=== PATIENT | female | born 1945 | race Caucasian/White ===

== ENCOUNTER → 2019-11-16 | Outpatient (CLI) | payer MEDICARE ==
--- NOTE | 2019-11-16 11:49 | CT ---
EXAMINATION TYPE: CT abdomen pelvis wo con DATE OF EXAM: 11/16/2019 COMPARISON: None HISTORY: History of renal stone CT DLP: 710 mGycm Automated exposure control for dose reduction was used. TECHNIQUE: Helical acquisition of images from the lung bases through the pelvis. FINDINGS: Lack of intravenous contrast could compromise sensitivity of the exam. LUNG BASES: No significant abnormality is appreciated. AORTA: No significant abnormality is appreciated. LIVER/GB: No significant abnormality is appreciated. PANCREAS: No significant abnormality is seen. SPLEEN: No significant abnormality is seen. ADRENALS: No significant abnormality is seen. KIDNEYS: Probable small parapelvic cysts noted in the right kidney anteriorly measuring 17 mm. No hyd ronephrosis or ureteral calcification bilaterally.. REPRODUCTIVE ORGANS: Extensive phleboliths are present, possible calcified fibroid anteriorly within the uterus, some small probable small cysts associated with the right ovary. URINARY BLADDER: No significant abnormality is seen. BOWEL: Colonic interposition noted anterior to the liver. Gastric wall thickening may be due to lack of distention. Small anterior abdominal wall hernia in the supraumbilical location contains fat00. FREE AIR: No Free Air is visible. ASCITES: None visible. PELVIC ADENOPATHY: None visualized. RETROPERITONEAL ADENOPATHY: No Retroperitoneal Adenopathy visible. OSSEOUS STRUCTURES: Degenerative disc changes and facet arthropathy changes are present especially i n the lumbar spine, anterolisthesis grade 1 L4-5, L3-4, loss of disc height with associated vacuum ph enomenon. There is multilevel spondylosis. Distortion of the anterior ilium on the right shows a duarte gn appearance, correlate for possible posttraumatic change. Sacralization of L5 is noted.. IMPRESSION: FINDINGS IN THE SPINE DESCRIBED. NO EVIDENT RENAL CALCULUS. ADDITIONAL FINDINGS ABOVE.
== END | disposition home or self-care (01) ==
LOC: RADCTMAIN 11:07
PROVIDERS: ATTEND Family Medicine
DX: Z87.442 Personal history of urinary calculi (principal)
CPT/HCPCS: 74176

== ENCOUNTER → 2021-01-23 | Outpatient (CLI) | payer MEDICARE ==
[~2021-01-23] MED LIST: DOBUTamine DRIP for NUC MED 500 MG in DEXTROSE/WATER 1 250ML.BAG IV PRN
--- NOTE | 2021-01-23 17:09 | ECHOF ---
Referral Reason:I10 Hypertension MEASUREMENTS -------- HEIGHT: 0.0 cm WEIGHT: 0.0 kg BP: RVIDd: 3.2 cm (< 3.3) IVSd: 1.2 cm (0.6 - 1.1) LVIDd: 4.2 cm (3.9 - 5.3) LVPWd: 1.4 cm (0.6 - 1.1) IVSs: 1.8 cm LVIDs: 2.7 cm LVPWs: 1.8 cm Ao Diam: 4.2 cm (2.0 - 3.7) AV Cusp: 2.0 cm (1.5 - 2.6) MV EXCURSION: 12.973 mm (> 18.000) MV EF SLOPE: 79 mm/s (70 - 150) EPSS: 1.0 cm MV E Rios: 0.45 m/s MV DecT: 344 ms MV A Rios: 0.78 m/s MV E/A Ratio: 0.58 RAP: 5.00 mmHg RVSP: 23.84 mmHg FINDINGS -------- Sinus rhythm. This was a technically adequate study. The left ventricular size is normal. There is mild concentric left ventricular hypertrophy. Overa ll left ventricular systolic function is normal with, an EF between 55 - 60 %. The diastolic fillin g pattern is normal for the age of the patient 10.04. The right ventricle is normal in size. LA is severely dilated >40 ml/m2 The right atrial size is normal. Interatrial and interventricular septum intact. There is no evidence of aortic regurgitation. There is no evidence of aortic stenosis. AOV is pos sible Bicuspid. Fnvk-ca-nwkzrapx mitral regurgitation is present. Mild tricuspid regurgitation present. There is no evidence of pulmonary hypertension. The right v entricular systolic pressure, as measured by Doppler, is 23.84mmHg. There is no pulmonic regurgitation present. The aortic root and ascending aorta are dilated measuring up to (4.2 - 4.5) cm. Normal inferior vena cava with normal inspiratory collapse consistent with estimated right atrial pre ssure of 5 mmHg. There is no pericardial effusion. CONCLUSIONS -------- 1. The left ventricular size is normal. 2. There is mild concentric left ventricular hypertrophy. 3. Overall left ventricular systolic function is normal with, an EF between 55 - 60 %. 4. The diastolic filling pattern is normal for the age of the patient 10.04 5. LA is severely dilated >40 ml/m2 6. AOV is possible Bicuspid. 7. Vlhs-jy-yzmtiafe mitral regurgitation is present. 8. Mild tricuspid regurgitation present. 9. The aortic root and ascending aorta are dilated measuring up to (4.2 - 4.5) cm. MANAGER BAR: Veronica Gottlieb RDCS
== END | disposition home or self-care (01) ==
LOC: RADNMMAIN 09:47
PROVIDERS: ATTEND Family Medicine
DX: I08.1 Rheumatic disorders of both mitral and tricuspid valves (principal); I10 Essential (primary) hypertension; I77.810 Thoracic aortic ectasia
CPT/HCPCS: 93306

== ENCOUNTER 2021-02-25 07:42 | Day surgery (SDC) | payer MEDICARE ==
[2021-02-21 13:34] VITALS: BMI 28.8
[~2021-02-25 07:42] MED LIST changes: +ALPRAZolam 0.25 MG TAB PO PRN; +ALPRAZolam 0.5 MG TAB PO PRN; +ASPIRIN 325 MG TAB PO STA; +ATORVASTATIN 80 MG TAB PO STA; -DOBUTamine DRIP for NUC MED 500 MG in DEXTROSE/WATER 1 250ML.BAG IV PRN; +NITROGLYCERIN SL TABS 0.4 MG TAB SUBLINGUAL PRN; +SODIUM CHLORIDE 0.9% 1,000 ML in EMPTY BAG 1 BAG IV SCH
[2021-02-25 08:37] VITALS: TEMP 98.2
[2021-02-25 08:46] LABS: Basophils % (A) 1 %; Eosinophils # (A) 0.2 k/uL (0-0.7); Eosinophils % (A) 3 %; HCT 37.7 % (34.0-46.0); HGB 12.2 gm/dL (11.4-16.0); Lymphocytes # (A) 2.6 k/uL (1.0-4.8); Lymphocytes % (A) 34 %; MCH 28.7 pg (25.0-35.0); MCHC 32.3 g/dL (31.0-37.0); MCV 88.7 fL (80.0-100.0); Mean Platelet Volume 8.2; Monocytes # (A) 0.5 k/uL (0-1.0); Monocytes % (A) 6 %; Neutrophils % (A) 53 %; Platelet Count 317 k/uL (150-450); RBC 4.25 m/uL (3.80-5.40); RDW 13.6 % (11.5-15.5); WBC 7.6 k/uL (3.8-10.6)
[2021-02-25 09:10] LABS: African American GFR (CKD) >90 (>60 ml/min/1.73 sqM); Anion Gap 9 mmol/L; Blood Urea Nitrogen 25 mg/dL (7-17); Calcium 9.4 mg/dL (8.4-10.2); Carbon Dioxide 26 mmol/L (22-30); Chloride 100 mmol/L (98-107); Glucose 94 mg/dL (74-99); Non-African American GFR(CKD) 87 (>60 ml/min/1.73 sqM); Sodium 135 mmol/L (137-145)
[2021-02-25 09:29] LABS: Potassium 4.9 mmol/L (3.5-5.1)
[2021-02-25] MEDS ORDERED: LIDOCAINE 1% INJ 10MG/ML (20 ML MDV) ONE (09:32)
[2021-02-25] MEDS ORDERED: VERAPAMIL 2.5 MG/ML 2 ML AMP ONE (09:33)
[2021-02-25] MEDS ORDERED: HEPARIN SODIUM 1,000 UN/ML (10ML VL) ONE (10:38)
[2021-02-25] MEDS ORDERED: LIDOCAINE 1% INJ 10MG/ML (20 ML MDV) SQ ONE (10:53)
[2021-02-25] MEDS ORDERED: VERAPAMIL SYRINGE (5 MG/10 ML) INTRAARTER ONE (10:54)
[2021-02-25] MEDS ORDERED: MIDAZOLAM 2 MG/2 ML VIAL IV ONE (10:58)
[2021-02-25] MEDS ORDERED: HEPARIN SODIUM 1,000 UN/ML (10ML VL) IV ONE (10:58)
[2021-02-25] MEDS ORDERED: IOPAMIDOL-370 125ML BTL INJ ONE (11:03)
[2021-02-25] MEDS ORDERED: RX INFO: IV CONTRAST WAS GIVEN 1 EACH MISC MISCELLANE PRN (11:08)
[2021-02-25] MEDS ORDERED: SODIUM CHLORIDE 0.9% 1,000 ML IV SCH (11:15)
--- NOTE | 2021-02-25 14:28 | CC ---
CARDIAC CATHETERIZATION REPORT DATE OF SERVICE: 02/25/2021 PERFORMING PHYSICIAN: Rafael Andrea M.D. PROCEDURE PERFORMED: Selective right and left coronary angiogram. INDICATION: This is a very pleasant 75-year-old female patient who was experiencing symptoms of chest discomfort. She underwent myocardial perfusion imaging stress test and that came in to be abnormal, and because of that a heart catheterization was advised. The myocardial perfusion imaging stress test revealed lateral ischemia. APPROACH: Right radial artery. COMPLICATIONS: None. LEVEL OF SEDATION: Moderate, with sedation length of 11 minutes. PROCEDURE DESCRIPTION: After obtaining informed consent, the patient was brought to the cardiac laborer bituminous paving. The right radial artery was cannulated using micropuncture technique. The micropuncture wire passed easily. Then I placed a 6-Arabic sheath in the right radial artery. Subsequently I gave the patient 2 mg of verapamil IA and 5000 units of heparin IV. Selective right and left coronary angiogram was performed with JR4 and JL 3.5 catheters. Left heart catheterization was not performed. The procedure was completed without any complication. SELECTIVE CORONARY ANGIOGRAM: 1. The RCA is a large-caliber vessel. It is a dominant vessel and appeared to be angiographically normal. Distally it bifurcates into PDA and PLV branches. Both appeared to be angiographically normal. 2. The left main is angiographically normal. It bifurcates into left circumflex and left anterior descending artery. 3. The left circumflex is a large-caliber vessel. It is a nondominant vessel. The left circumflex is angiographically normal and gives rise to a large OM branch which appeared to be angiographically normal. 4. The LAD is a large-caliber vessel. The proximal LAD has a plaque that appeared to be in the range of 30% only. The mid and distal LAD appeared to be angiographically normal. CONCLUSION: Mild nonobstructive plaque involving the proximal left anterior descending artery that appeared to be in the range of 30% only. POSTPROCEDURE MANAGEMENT: 1. Medical treatment. 2. Follow up with the patient. MMODL / IJN: [id number] /
[2021-02-25 15:54] VITALS: PULSE 60
[2021-02-25 15:55] VITALS: BP 117/57; RESP 16
== END 2021-02-25 15:10 | disposition home or self-care (01) ==
LOC: CATHCVL 07:42
PROVIDERS: ATTEND Internal Medicine Interventional Cardiology
DX: R94.39 Abnormal result of other cardiovascular function study (principal); I25.10 Atherosclerotic heart disease of native coronary artery without angina pectoris; I10 Essential (primary) hypertension; Z20.822 Contact with and (suspected) exposure to COVID-19; Z87.820 Personal history of traumatic brain injury; Z79.899 Other long term (current) drug therapy; Z88.5 Allergy status to narcotic agent
CPT/HCPCS: 93454; 80048; 85025; 87635; C1894; C1769; J2250; J2001; J1644; Q9967

== ENCOUNTER → 2021-12-12 | Outpatient (CLI) | payer MEDICARE ==
--- NOTE | 2021-12-12 11:06 | XR ---
EXAMINATION TYPE: XR skull complete DATE OF EXAM: 12/12/2021 COMPARISON: None HISTORY: Pre-MRI evaluation TECHNIQUE: Skull is examined in 4 views. FINDINGS: Subtle lytic areas may be within the right calvarium. The sella appears unremarkable. Masto id air cells and paranasal sinuses appear clear. No suspicious metallic foreign bodies to contraindic ate MRI or within the calvarium. Cavity repair and cervical fusion is noted. IMPRESSION: 1. No abnormal metallic foreign body to contraindicate MRI within the afvox-ly-zwut. 2. Small lytic areas within the calvarium may be present on the right.
--- NOTE | 2021-12-12 11:08 | XR ---
EXAMINATION TYPE: XR cervical spine limited DATE OF EXAM: 12/12/2021 COMPARISON: None HISTORY: Disc disorder, pre-MRI TECHNIQUE: 5 view cervical spine FINDINGS: Prevertebral space is normal. There is narrowing of disc height at C3-4 and C6-7. Posterior endplate spurring is present at these levels. Disc spaces are present C4-5 C5-6. Posterior spinal la mellar line is intact. Facet changes are present. Odontoid and submental vertex view appears normal. IMPRESSION: 1. Postsurgical anterior cervical fusion changes C4-C6 with metallic disc spacers. 2. Metallic foreign body to contraindicate MRI is not identified within the foemo-uj-nepn.
--- NOTE | 2021-12-14 04:22 | MR ---
EXAMINATION TYPE: MR lumbar spine wo con DATE OF EXAM: 12/12/2021 COMPARISON: None HISTORY: Intervertebral disc disorders Multiplanar multiecho imaging of the lumbar spine with no contrast. There is a mild L3-4 and L4-5 spondylolisthesis. Subluxation is 5 mm at L3-4 and 4 mm at L4-5. No com pression fracture. There is degenerative disc space narrowing throughout the lumbar spine. There is p osterior disc herniation and hypertrophic facet arthropathy at L3-4. There is moderately severe spina l stenosis at L3-4. There is mild to moderate spinal stenosis due to facet arthropathy and subluxatio n at L4-5. The sacroiliac joints are intact. There is no lumbar paraspinal mass. No evidence of focal bone destr uction. There is mild posterior disc bulging at L4-5. There is posterior disc bulging at T12-L1. Ther e is developmentally adequate spinal canal at the thoracolumbar junction. No spinal stenosis at T12-L 1. There is no significant neural foraminal stenosis at L3-4 and L4-5. IMPRESSION: There is first-degree L3-4 and L4-5 spondylolisthesis. There is moderately severe spinal stenosis at L5-4 and moderate spinal stenosis at L4-5. No fracture seen.
== END | disposition home or self-care (01) ==
LOC: RADMRIMAIN 10:02
PROVIDERS: ATTEND Family Medicine
DX: M50.323 Other cervical disc degeneration at C6-C7 level (principal); M43.22 Fusion of spine, cervical region
CPT/HCPCS: 70260; 72040; 72148

== ENCOUNTER → 2022-03-06 | Outpatient (CLI) | payer MEDICARE ==
[2022-03-06 09:04] VITALS: BP 126/73; PULSE 85; RESP 18; TEMP 97.8
--- NOTE | 2022-03-06 13:01 | P.PAINPG ---
PQRS Measure Charge Sheet Comment: HISTORY OF PRESENT ILLNESS: 76 yr old female w at side as a referral from [facility] presents today w severe and chronic LBP secondary to disc bulges, DDD, spondylosis and facet arthropathy without myelopathy for evaluation. Pt staes her pain level is currently at 5/10 in intensity, constant, localized in the lumbar spine, burning in character w shooting towards the BLEs and occasional L foot numbness. Pain is provoked as high as 7/10 by climbing stairs, standing/ walking for periods of 20 min or more. Pain is relieved by medications (Tylenol, Neurontin), CBD oil, ice, heat, PT in 2019, chiropractic treatments before she underwent cervical surgery, use of a walker for ambulation, repositoning and rest. Pt states she is starting a 6 wk stent of PT this week. PMH: HTN, Hyperlipidemia, OA, OAB PSH: Cervical discectomy w CAGE, Tubal Ligation, Cerebral Hemorrhage w Evacuation x2 SH: Negative x 3. and lives w spouse. FH: Mo- CAD/ OP/Dementia/ at age 87. Fa- Unknown. Bro- Lung CA. Sis- Pharyngeal CA. All: See list Meds: See list REVIEW OF ORGAN SYSTEMS: CONSTITUTIONAL: No fevers or chills. No recent weight loss. NEUROLOGICAL: + numbness and tingling along the distal extremities. No seizure disorders or headaches. MUSCULOSKELETAL: + pain PSYCHIATRIC: Denies current depression or suicidal thoughts. Physical Examinations : Constitutional : Cooperative , not in acute distress . Neurologic : Cranial nerve II to XII intact. No focal neurological deficits. Psychiatric : alert & oriented x 3. Matching mood & appropriate affect. Judgment & insight intact. Musculoskeletal : Cervical Spine Motor strength in the deltoid and biceps: Normal right side. Normal Left side Motor strength biceps and the wrist extensors: Normal right side . Normal left side Motor strength in the triceps muscle: Normal right side. Normal left side Deep tendon reflexes: Normal at the biceps. Normal at Brachioradialis. Normal at triceps Vertebral body tenderness to deep palpation over L4 Cervical facet loading test: positive bilaterally Spurling test: positive bilaterally Neck distraction test: positive bilaterally Jj sign: positive bilaterally Lumbar spine Motor strength lower extremities ,thigh and legs 5/5 Right side , 5/5 Left side Deep tendon reflexes : Normal Knee Jerk. Normal Ankle Jerk Vertebral body tenderness over Lumbar facet Loading Test: positive Right / positive Left Range of motion of the lumbar spine Flexion 30 degrees, extension 10 degrees Straight Leg Raise test: Left/ Right positive at degree Sven test: positive right / positive left. Severe tenderness over the Sacroiliac joint on the Right / Left sides Gaenslen test: positive bilaterally Seated flexion test: positive bilaterally. Sacral spine : Severe tenderness over the Sacroiliac joint: right side / left side Range of motion: Flexion of the lumbar spine <60 degrees Range of motion: Extension of the lumbar spine <20 degrees Gaenslen's Test positive Drake's Test positive Sven test: positive right side / left side Thigh Thrust Test Sacral Thrust Test Imaging: MRI without contrast of the lumbar spine from 12/12/21 reviewed Assessment/ Plan : Lumbar DDD, lumbar spondylolisthesis Recommendation of FATUMA L4-L5. May need a series of injections, up to 3 within a six-month timeframe, for optimal pain relief. Risks, benefits of procedure discussed and patient verbalized understanding. Denies aspirin or anti- coagulant use or medical history of diabetes. Protocol for discontinuation/ continuation of medications ovi procedure discussed. All questions answered. I have spent greater than 30 minutes on patient care today. Dr Delvalle was available by phone for the evaluation of this patient. The time was used to review the medical records including relevant urine studies and Prescription history (MAPs), review of the available imaging, evaluation and examination of the patient, coordination of care with the medical staff and if applicable referring physicians, as well as creation of the medical record - Pain Location Bilateral Lower Back Non-Pharmacological Interventions: Heat, Ice, Inactivity, Physical Therapy, Position/Reposition Pharmacological Interventions: PRN Medication, Scheduled Medication, Topical Medication Home Medications: Ambulatory Orders DULoxetine HCL [Cymbalta] 30 mg PO DAILY 02/21/21 Metoprolol Succinate (ER) [Toprol XL] 25 mg PO DAILY 02/21/21 Oxybutynin Chloride [Ditropan XL] 10 mg PO DAILY 02/21/21 hydroCHLOROthiazide [Hydrodiuril] 25 mg PO DAILY 02/21/21 Controlled Substance Measures - Controlled Substance Measures Is patient prescribed a controlled substance at discharge?: No
== END | disposition home or self-care (01) ==
LOC: PNWHC3 08:26
PROVIDERS: ATTEND Specialist
DX: M51.16 Intervertebral disc disorders with radiculopathy, lumbar region (principal)
CPT/HCPCS: 99211

== ENCOUNTER 2022-08-14 09:25 | Day surgery (SDC) | payer MEDICARE ==
[2022-08-13 09:45] VITALS: BMI 30.2
[~2022-08-14 09:25] MED LIST changes: -ALPRAZolam 0.25 MG TAB PO PRN; -ALPRAZolam 0.5 MG TAB PO PRN; -ASPIRIN 325 MG TAB PO STA; -ATORVASTATIN 80 MG TAB PO STA; +LACTATED RINGERS 1,000 ML IV SCH; +LIDOCAINE 1% (10MG/ML) FOR IV START INTRADERMA PRN; -NITROGLYCERIN SL TABS 0.4 MG TAB SUBLINGUAL PRN; -SODIUM CHLORIDE 0.9% 1,000 ML in EMPTY BAG 1 BAG IV SCH
[2022-08-14 09:54] VITALS: TEMP 97.8
[2022-08-14] MEDS ORDERED: methylPREDNISolone ACETATE 40 MG/ML 1 ML VIAL ONE (10:11)
[2022-08-14] MEDS ORDERED: MIDAZOLAM 2 MG/2 ML VIAL ONE (10:11)
[2022-08-14] MEDS ORDERED: IOPAMIDOL M200 10 ML VIAL ONE (10:11)
--- NOTE | 2022-08-14 10:21 | P.PCN ---
Date of Procedure: 08/14/22 Procedure(s) Performed: PREOPERATIVE DIAGNOSIS: 1- Lumbar Degenerative Disc Diseases 2-Lumbar spondylosis with Facet arthropathy without myelopathy. POSTOPERATIVE DIAGNOSIS: Same as preop diagnosis. PROCEDURE 1. Lumbar epidural steroid injection under fluoroscopic guidance at the L5-S1 level. (Fluoroscopy imaging was available in radiology department) 2. Lumbar epidurogram. ANESTHESIA: moderate sedation with intravenous Versed 1 mg . Sedation start time : 1012 Sedation end time : 1018 EBL: Minimal PROCEDURE INDICATION: The patient with low back pain and radiculitis symptoms unresponsive to conservative treatment. Fluoroscopy was used to optimize visualization of the needle placement and to maximize safety. PROCEDURE DESCRIPTION / TECHNIQUE: The patient was seen and identified in the preoperative area. Risks, benefits, complications including but not limited to infections ,bleeding ,allergic reaction to the medications ,nerve damage and not complete pain releife , and alternatives were discussed with the patient. The patient agreed to proceed with the procedure and signed the consent. IV was started, and vital signs were stable. Patient was taken to the OR and time out was completed. The patient was placed in the prone position on procedure table and a pillow was placed under the abdomen to reduce lumbar lordosis. The lumbosacral area was prepped and draped in the usual sterile fashion.ere closely monitored during the procedure. Conscious sedation was used during the procedure to decrease patients anxiety. Vital signs was monitered during the entire procedure. Using anterior-posterior fluoroscopy, the L5-S1 interlaminar space was identified and the skin over this site was marked and then infiltrated with 1% lidocaine subcutaneously. Subsequently, a 20-gauge Tuohy epidural needle was inserted and advanced toward the epidural space using the ``Loss of resistance technique and guided by AP and lateral fluoroscopy. The correct needle position in the epidural space was verified with the injection of 2 mL of the water soluble contrast dye Isovue 200 contrast and observing an excellent epidurogram with the epidural spread of the dye, after negative aspiration for blood and CSF and in the absence of paresthesias. Again after negative aspiration, a 6 ml mixture containing 40 mg of Depo-medrol ( Preservetive Free ), and 2 ml of preservative free Normal Saline, and 2 ml of preservative free lidocaine 1% solution was injected and a washout of epidurogram was seen. Needle was withdrawn intact, skin was cleansed, and bandages were applied. COMPLICATIONS: None DISPOSITION / PLANS: The patient was placed in a supine position and transferred to the recovery area in a stable condition for observation. There was no evidence of lower extremity motor or sensory deficit after the procedure. Patient was discharged from the recovery room after meeting discharge criteria. Home discharge instructions were given to the patient by the staff. The patient was reexamined prior to discharge. The patient will schedule a follow up in the clinic in 2-4 weeks. note= the procedure was scheduled to have lumbar epidural steroid injection at L4 5, that level the epidural space was not accesable ,for this reason the procedure was changed to L5-S1
[2022-08-14] MEDS ORDERED: IV FLUID CONTINUATION 1,000 ML IV ONE (10:22)
[2022-08-14 10:26] VITALS: RESP 16
[2022-08-14 10:36] VITALS: BP 137/79; PULSE 84
--- NOTE | 2022-08-14 10:41 | FL ---
Intraoperative/procedural fluoroscopic services were provided. Total fluoroscopy time is 3 seconds wi th a total of 1 submitted images to PACS. Please see the operative/procedural note for further detail s. DAP: [id number]
== END 2022-08-14 10:54 | disposition home or self-care (01) ==
LOC: ORPAIN 09:25
PROVIDERS: ATTEND Specialist
DX: M51.16 Intervertebral disc disorders with radiculopathy, lumbar region (principal); M47.26 Other spondylosis with radiculopathy, lumbar region; Z88.5 Allergy status to narcotic agent
CPT/HCPCS: 62323; J2250; J1030; Q9966

== ENCOUNTER → 2022-09-01 | Outpatient (CLI) | payer MEDICARE ==
[2022-09-01 12:13] VITALS: BP 142/59; PULSE 83; RESP 18; TEMP 98.4
--- NOTE | 2022-09-01 12:31 | P.PAINPG ---
PQRS Measure Charge Sheet Comment: A 77 yr old female with a history of severe and chronic LBP secondary to lumbar DDD and spondylosis with facet arthropathy without myelopathy presents today for evaluation s/p FATUMA L5-S1. Pt states she experienced 25 % pain relief x 2-3 wks s/p procedure. Pain level is provoked at 5/10 in intensity, constant, localized in the lumbar spine, dull in character w shooting towards the hips and buttocks. Pain is provoked by bending. Pain is alleviated with PT x 3 1/2 mo which ended in Jul 2022, chiropractic treatments semi monthly which ended in Apr 2022, heat, ice, meds, topical, repositioning and rest. Interventional pain procedures completed include FATUMA L5-S1 x1, L4-L5 x1 Patient is currently on Tyl Patient denies any side effects of the medication(s), denies excessive drowsiness or sleepiness, denies suicidal ideation and reports that the current pain medication is helping to control the pain and improve activities of daily living. Patient denies any motor or sensory deficits. Patient denies any fever or night sweats, denies any change in the bowel movements or urination. Physical Examination: -Constitutional: Cooperative. Not in acute distress . - Neurologic: Cranial nerve II to XII intact. No focal neurological deficits. - Psychatric: Alert & oriented x 3. Matching mood & appropriate affect. Judgment and insight intact. - Musculoskeletal: Cervical spine: Muscle bulk/ tone/ strength in the bilateral upper extremities normal Vertebral body tenderness to palpation over Spurling test positive Distraction test positive Facet loading test positive TTP Thoracic spine Muscle bulk / tone/ strength in the bilateral paraspinal muscles normal Vertebral body tender to palpation over Facet loading test positive TTP Lumbar spine: Motor bulk/ tone/ strength lower extremities , thigh and legs : 5/5 Deep tendon reflexes : Normal Knee Jerk. Normal Ankle Jerk . Vertebral body tenderness to palpation over Lumbar Facet Loading Test positive Straight Leg Raise: positive at 30 degrees right side/ left side Gaenslen's Test positive Sacral spine : Severe tenderness over the Sacroiliac joint: right side / left side Range of motion: Flexion of the lumbar spine <60 degrees Range of motion: Extension of the lumbar spine <20 degrees Gaenslen's Test positive right side / left side Sven test: positive right side / left side Thigh Thrust Test positive right side / left side Sacral Thrust Test positive right side / left side Assessment and plan: Chronic LBP secondary to lumbar DDD, spondylosis with facet arthropathy without myelopathy Pt finds her pain level tolerable and manage residual pain on her own. May return on an as needed basis. All questions answered. I have spent less than 30 minutes on patient care today. Dr Delvalle was available by phone for the evaluation of this patient. The time was used to review the medical records including relevant urine studies and Prescription history (MAPs), review of the available imaging, evaluation and examination of the patient, coordination of care with the medical staff and if applicable referring physicians, as well as creation of the medical record PQRS Narrative: Hx Alcohol Use (MH) No Home Medications: Ambulatory Orders DULoxetine HCL [Cymbalta] 30 mg PO DAILY 02/21/21 Oxybutynin Chloride [Ditropan XL] 10 mg PO DAILY 02/21/21 hydroCHLOROthiazide [Hydrodiuril] 25 mg PO DAILY 02/21/21 Gabapentin [Neurontin] 300 mg PO TID 03/06/22 Rosuvastatin [Crestor] 10 mg PO DAILY 03/06/22 Controlled Substance Measures - Controlled Substance Measures Is patient prescribed a controlled substance at discharge?: No
== END ==
LOC: PNWHC3 11:01
PROVIDERS: ATTEND Specialist
DX: M51.36 Other intervertebral disc degeneration, lumbar region (principal); M47.816 Spondylosis without myelopathy or radiculopathy, lumbar region; G89.29 Other chronic pain; Z88.5 Allergy status to narcotic agent
CPT/HCPCS: 99211